=== PATIENT | female | born 1980 ===

== ENCOUNTER 2017-12-26 09:19 | Day surgery (SDC) | payer OTHER ==
[2017-12-24 11:50] VITALS: BMI 22.6
[2017-12-26 10:18] LABS: BASO % 0.3 % (0.0-2.0); EOS % 0.2 % (0.0-4.0); HEMOGLOBIN 14.7 g/dL (12.0-16.0); LYMPH # 2.2 K/uL (1.0-4.3); LYMPH % 35.5 % (20.0-40.0); MEAN CORPUSCULAR HEMOGLOBIN 30.5 pg (27.0-31.0); MEAN CORPUSCULAR HGB CONC 33.9 g/dL (33.0-37.0); MEAN PLATELET VOLUME 8.8 fl (7.2-11.7); MONO # 0.3 K/uL (0.0-0.8); MONO % 5.1 % (0.0-10.0); NEUT # 3.6 K/uL (1.8-7.0); NEUT % 58.9 % (50.0-75.0); NRBC % 0.1 % (0.0-0.0); RBC 4.83 Mil/uL (3.80-5.20); RED CELL DISTRIBUTION WIDTH 12.7 % (11.5-14.5); WHITE BLOOD COUNT 6.1 K/uL (4.8-10.8)
[2017-12-26 10:20] VITALS: RESP 18
[2017-12-26] MEDS ORDERED: Midazolam 2 MG/2 ML VIAL ONE (10:58)
[2017-12-26] MEDS ORDERED: Propofol 10 mg/ml Inj (20 ML) ONE (10:58)
[2017-12-26] MEDS ORDERED: Lidocaine 4% (Laryng-O-Jet) Kit MM ONE (10:58)
[2017-12-26] MEDS ORDERED: ePHEDrine 50 mg/ml Inj ONE (11:00)
[2017-12-26] MEDS ORDERED: Succinylcholine 200 mg/10 ml Inj IV ONE (11:02)
[2017-12-26] MEDS: Lactated Ringer's 1,000 ML IV ONE (11:25)
[2017-12-26] MEDS ORDERED: Dexamethasone 4 mg/1 ml ONE (11:51)
[2017-12-26] MEDS ORDERED: HYDROmorphone 0.5 mg/0.5 ml ISec IVP PRN (12:09)
[2017-12-26] MEDS ORDERED: Lactated Ringer's 1,000 ML IV SCH (12:15)
[2017-12-26 14:40] VITALS: BP 113/69; PULSE 80; TEMP 97.5; O2SAT 100
--- NOTE | 2017-12-26 22:59 | OP ---
PROCEDURE DATE: 12/26/2017 PREOPERATIVE DIAGNOSES: 1. History of postmenopausal bleeding. 2. History of breast cancer. 3. History of tamoxifen therapy. POSTOPERATIVE DIAGNOSES: 1. History of postmenopausal bleeding. 2. History of breast cancer. 3. History of tamoxifen therapy. OPERATION PERFORMED: Hysteroscopy, dilatation and curettage. SURGEON: Jesica Ku MD FREIGHT ADJUSTER: Dr. Alena Person. ESTIMATED BLOOD LOSS: Minimal. INTRAVENOUS FLUID INTAKE: The patient received approximately 200 mL of D5 LR intraoperatively. OPERATIVE FINDINGS: Normal external female genitalia, urethra normal, cervix smooth, vagina pink. Hysteroscopic findings revealed atrophic erythematous endometrium. No polyps were identified. Both ostia were visualized. Photos were taken for documentation. DESCRIPTION OF PROCEDURE: After informed consent was obtained, the patient was taken to the operating room. She was prepped and draped in a normal sterile fashion. Attention was then turned to the vagina where a weighted speculum with a retractor was introduced into the vaginal vault. The cervix was visualized and grasped with a single-tooth tenaculum. The cervix was then gently dilated. The hysteroscope was inserted into the uterine cavity with findings noted above. Photographs were taken for documentation. A sharp curettage was then performed, and endometrial curettings were sent to Pathology. The tenaculum site was inspected. Hemostasis was noted. The patient was taken to the recovery room in awake and stable condition. The patient was unable to tolerate an office procedure, so the patient was brought to the operating room. Jesica Ku MD
== END 2017-12-26 14:40 | disposition home or self-care (01) ==
LOC: H.OPSURG 09:19
PROVIDERS: ATTEND Obstetrics & Gynecology Gynecology
DX: Z85.3 Personal history of malignant neoplasm of breast (principal); N95.0 Postmenopausal bleeding; Z79.810 Long term (current) use of selective estrogen receptor modulators (SERMs)
CPT/HCPCS: 36415; 58558; 85025; 88305; J0330; J1100; J1885; J2001; J2250; J2405; J2704; J3010; J7030; J7120